=== PATIENT | female | born 1975 | race Caucasian/White ===

== ENCOUNTER 2020-09-25 08:56 | Inpatient (IN) | payer OTHER ==
[~2020-09-25] VITALS: Ht 162.6 cm; Wt 80.8 kg
[2020-09-25] MEDS ORDERED: MIDAZOLAM 1 MG/ML, 2ML ONE (13:13)
[2020-09-25] MEDS ORDERED: FENTANYL PF 250 MCG/5ML ONE (13:13)
[2020-09-25 13:29] VITALS: BP 137/88
[2020-09-25] MEDS ORDERED: CHLORHEXIDINE 15 ML UDC ONE (13:55)
[2020-09-25 13:56] LABS: BASOPHILS % (AUTO) 0 % (0-1); EOSINOPHILS % (AUTO) 2 % (1-7); LYMPHOCYTES % (AUTO) 33 % (22-44); MEAN CORPUSCULAR HGB CONC 32.2 g/dL (32.4-35.8); MEAN PLATELET VOLUME 9.2 fL (7.4-10.4); MONOCYTES % (AUTO) 8 % (2-9); NEUTROPHILS % (AUTO) 57 % (42-75); PLATELET COUNT 318 x10^3/uL (130-400); RED BLOOD COUNT 4.94 x10^6/uL (3.82-5.3); RED CELL DISTRIBUTION WIDTH 16.2 % (9.6-15.2)
[2020-09-25] MEDS ORDERED: ACETAMINOPHEN 500 MG TABLET ONE (13:56)
[2020-09-25] MEDS ORDERED: FAMOTIDINE 20 MG TABLET ONE (13:56)
[2020-09-25 13:57] LABS: MD NO
[2020-09-25] MEDS ORDERED: FAMOTIDINE 20 MG TABLET PO ONE (14:00)
[2020-09-25] MEDS ORDERED: LACTATED RINGERS 1,000 ML IV SCH (14:00)
[2020-09-25] MEDS ORDERED: ACETAMINOPHEN 500 MG TABLET PO ONE (14:00)
[2020-09-25] MEDS ORDERED: CHLORHEXIDINE 15 ML UDC MM ONE (14:00)
[2020-09-25 14:04] LABS: ANION GAP 7 mmol/L (5-15); CALCIUM 9.1 mg/dL (8.5-10.1); CHLORIDE 110 mmol/L (98-107); CREATININE 0.66 mg/dL (0.55-1.02)
[2020-09-25 14:23] LABS: HCG UR SG 1.024 (1.003-1.030)
[2020-09-25] MEDS ORDERED: MEPERIDINE/PF 25MG/0.5ML IVPush PRN (14:30)
[2020-09-25] MEDS ORDERED: PROMETHAZINE 25 MG/ML, 1ML IVPush PRN (14:30)
[2020-09-25] MEDS ORDERED: ONDANSETRON 2MG/ML, 2ML IVPush PRN (14:30)
[2020-09-25] MEDS ORDERED: METHOCARBAMOL 1,000 MG in DEXTROSE 5% 100 ML IV PRN (14:30)
[2020-09-25] MEDS ORDERED: hydrALAzine 20 MG/ML, 1ML IV PRN (14:30)
[2020-09-25] MEDS ORDERED: LABETALOL 5MG/ML, 20ML IV PRN (14:30)
[2020-09-25] MEDS ORDERED: HYDROmorphone 1 MG/ML, 1ML INJ IVPush PRN (14:30)
[2020-09-25] MEDS ORDERED: DEXAMETHASONE 4 MG/ML, 1ML ONE (14:30)
[2020-09-25] MEDS ORDERED: OXYcodone 5 MG/5 ML ORAL.SOL UDC PO PRN (14:30)
[2020-09-25] MEDS ORDERED: CEFAZOLIN 1,000 MG ONE ×2 (14:31)
[2020-09-25] MEDS ORDERED: PROPOFOL 10 MG/ML, 20ML ONE (15:17)
[2020-09-25] MEDS ORDERED: ONDANSETRON 2MG/ML, 2ML ONE ×2 (15:17→16:03)
[2020-09-25] MEDS ORDERED: ROCURONIUM 10MG/ML,5ML ONE (15:18)
[2020-09-25] MEDS ORDERED: FENTANYL PF 100 MCG/2ML ONE (16:03)
[2020-09-25] MEDS: FENTANYL PF 100 MCG/2ML IV PRN ×3 (16:05→16:20)
[2020-09-25] MEDS ORDERED: ACETAMINOPHEN 650 MG/20.3 ML UDC ONE (16:21)
[2020-09-25] MEDS ORDERED: OXYcodone 5 MG/5 ML ORAL.SOL UDC ONE (16:22)
[2020-09-25] MEDS ORDERED: MEPERIDINE/PF 25MG/ML,1ML ONE (16:45)
[2020-09-25] MEDS: D5%-LACTATED RINGERS 1,000 ML IV SCH (18:33)
[2020-09-25] MEDS ORDERED: OXYcodone/APAP 5/325MG TABLET PO PRN (19:00)
[2020-09-25] MEDS ORDERED: morphine SULFATE 10 MG/ML, 1ML IV PRN (19:00)
[2020-09-25] MEDS ORDERED: ACETAMINOPHEN 325 MG TABLET PO PRN (19:00)
[2020-09-25] MEDS ORDERED: KETOROLAC 30 MG/1 ML IV PRN (19:00)
[2020-09-25] MEDS ORDERED: BISACODYL 10 MG SUPP PR PRN (19:00)
[2020-09-25] MEDS ORDERED: ACETAMINOPHEN 650 MG SUPP PR PRN (19:00)
[2020-09-25] MEDS: IBUPROFEN 600 MG TABLET PO SCH (19:40)
[2020-09-25] MEDS: SIMETHICONE 80 MG CHEW TAB PO SCH (19:40)
[2020-09-25] MEDS: DOCUSATE 100 MG CAPSULE PO SCH (19:40)
[2020-09-25 19:53] LABS: BASOPHILS % (AUTO) 0 % (0-1); EOSINOPHILS % (AUTO) 0 % (1-7); LYMPHOCYTES % (AUTO) 4 % (22-44); MEAN CORPUSCULAR HEMOGLOBIN 25.8 pg (27.0-34.8); MEAN CORPUSCULAR HGB CONC 32.4 g/dL (32.4-35.8); MEAN PLATELET VOLUME 9.2 fL (7.4-10.4); MONOCYTES % (AUTO) 3 % (2-9); NEUTROPHILS % (AUTO) 93 % (42-75); PLATELET COUNT 296 x10^3/uL (130-400); RED BLOOD COUNT 4.64 x10^6/uL (3.82-5.3); RED CELL DISTRIBUTION WIDTH 15.7 % (9.6-15.2)
[2020-09-25 19:57] LABS: MD NO
[2020-09-25] MEDS ORDERED: ZOLPIDEM 5MG TABLET PO PRN (21:00)
[2020-09-25] MEDS ORDERED: SENNA/DOCUSATE TABLET PO SCH (21:00)
[2020-09-25 21:03] VITALS: BP 127/79
[2020-09-26 00:09] VITALS: BP 130/83
[2020-09-26] MEDS ORDERED: FLURAZEPAM PO PRN (02:00)
[2020-09-26] MEDS: D5%-LACTATED RINGERS 1,000 ML IV SCH ×2 (02:33→10:33)
[2020-09-26 03:37] VITALS: BP 134/83
[2020-09-26] MEDS: IBUPROFEN 600 MG TABLET PO SCH ×3 (06:01→16:09)
[2020-09-26 06:04] LABS: BASOPHILS % (AUTO) 0 % (0-1); EOSINOPHILS % (AUTO) 0 % (1-7); LYMPHOCYTES % (AUTO) 12 % (22-44); MEAN CORPUSCULAR HEMOGLOBIN 26.2 pg (27.0-34.8); MEAN PLATELET VOLUME 9.4 fL (7.4-10.4); MONOCYTES % (AUTO) 12 % (2-9); NEUTROPHILS % (AUTO) 76 % (42-75); PLATELET COUNT 280 x10^3/uL (130-400); RED CELL DISTRIBUTION WIDTH 15.4 % (9.6-15.2)
[2020-09-26 06:05] LABS: CHLORIDE 106 mmol/L (98-107)
[2020-09-26 06:16] LABS: MD NO
[2020-09-26 06:17] LABS: ALANINE AMINOTRANSFERASE 14 U/L (12-78); ALBUMIN 3.3 g/dL (3.4-5.0); ALKALINE PHOSPHATASE 49 U/L (45-117); ANION GAP 5 mmol/L (5-15); BILIRUBIN,TOTAL 0.8 mg/dL (0.2-1.0); CALCIUM 8.1 mg/dL (8.5-10.1); TOTAL PROTEIN 6.5 g/dL (6.4-8.2)
[2020-09-26 07:29] VITALS: BP 124/78
[2020-09-26] MEDS: DOCUSATE 100 MG CAPSULE PO SCH (08:03)
[2020-09-26] MEDS: SIMETHICONE 80 MG CHEW TAB PO SCH ×2 (08:03→16:08)
[2020-09-26 14:44] VITALS: BP 137/77
== END 2020-09-26 16:41 | disposition home or self-care (01) | DRG 743 ==
LOC: ORIP 12:48 → 4NE 18:00
PROVIDERS: ADMIT Obstetrics & Gynecology; ATTEND Obstetrics & Gynecology
PROC: 0UT60ZZ Resection of Left Fallopian Tube, Open Approach (ICD-10-PCS; 2020-09-25)
PROC: 0UT90ZZ Resection of Uterus, Open Approach (ICD-10-PCS; principal; 2020-09-25 14:30)
DX: N92.0 Excessive and frequent menstruation with regular cycle (principal); N94.6 Dysmenorrhea, unspecified; Z20.828 Contact with and (suspected) exposure to other viral communicable diseases; Z30.2 Encounter for sterilization; Z98.51 Tubal ligation status
CPT/HCPCS: 36415; 80048; 80053; 81025; 85025; 86850; 86900; 87635; 88307; G0378; J0690; J1100; J2175; J2250; J2405; J2704; J3010; J2270; J7120